=== PATIENT | female | born 2000 | race Caucasian/White ===

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

== ENCOUNTER 2022-06-11 03:36 | Inpatient (IN) | payer MEDICAID ==
[2022-06-11] MEDS ORDERED: Butorphanol 1 MG/ML SDV IVPUSH PRN (03:42)
[2022-06-11] MEDS ORDERED: Misoprostol 25 MCG (1/4 of 100 MCG) Tab VAG PRN ×2 (03:42)
[2022-06-11] MEDS ORDERED: Sodium Chloride 0.9% 10 ML Syringe FLUSH PRN (03:42)
[2022-06-11] MEDS ORDERED: Sodium Chloride 0.9% 2.5 ML Syringe FLUSH PRN (03:42)
[2022-06-11] MEDS ORDERED: Carboprost Tromethamine 250 MCG/1 ML Amp IM PRN (03:42)
[2022-06-11] MEDS ORDERED: Lidocaine 1% 50 ML MDV INJECT PRN (03:42)
[2022-06-11] MEDS ORDERED: Misoprostol 200 MCG Tab PO PRN (03:42)
[2022-06-11] MEDS ORDERED: Tranexamic Acid 1,000 MG in Sodium Chloride 0.9% 100 ML IV PRN ×2 (03:42→21:03)
[2022-06-11] MEDS ORDERED: Methylergonovine 0.2 MG/1 ML Amp IM PRN (03:42)
[2022-06-11] MEDS ORDERED: Water For Irrigation,Sterile 1,000 ML Container IRR PRN (03:42)
[2022-06-11] MEDS ORDERED: Terbutaline 1 MG/ML SDV SUBCUT PRN (03:42)
[2022-06-11] MEDS ORDERED: Sodium Chloride 0.9% 20 ML SDV IV PRN (03:42)
[2022-06-11] MEDS ORDERED: Oxytocin/0.9 % Sodium Chloride 30 UNIT/500 ML BAG IV SCH ×2 (03:45)
[2022-06-11] MEDS: Lactated Ringers 1,000 ML IV SCH ×2 (09:16→13:28)
[2022-06-11] MEDS ORDERED: Ropivacaine/PF 400 MG/200 ML PCA ONE (11:48)
[2022-06-11] MEDS ORDERED: ePHEDrine 50 MG/ML SDV IVPUSH PRN (12:28)
[2022-06-11] MEDS ORDERED: Phenylephrine HCl In 0.9% NaCl 1 MG/10 ML Vial IVPUSH PRN (12:28)
[2022-06-11] MEDS ORDERED: Ropivacaine HCl/PF 400 MG in Premix Bag 1 BAG EPIDUR SCH (12:30)
[2022-06-11] MEDS ORDERED: Phenylephrine 1% 10 MG/ML SDV ONE (12:36)
[2022-06-11] MEDS ORDERED: ePHEDrine 50 MG/ML SDV ONE (12:36)
[2022-06-11] MEDS ORDERED: Lanolin 100% Cream 7 GM Tube TOP PRN (21:03)
[2022-06-11] MEDS ORDERED: Acetaminophen 500 MG Tab PO PRN (21:03)
[2022-06-11] MEDS ORDERED: Witch Hazel Medicated Pads 40/Jar TOP PRN (21:03)
[2022-06-11] MEDS ORDERED: Bisacodyl 10 MG Supp RECTAL PRN (21:03)
[2022-06-11] MEDS ORDERED: Ibuprofen 400 MG Tab PO PRN (21:03)
[2022-06-11] MEDS ORDERED: Misoprostol 200 MCG Tab RECTAL PRN (21:03)
[2022-06-11] MEDS ORDERED: Benzocaine/Menthol 20%-0.5% Spray 78 GM Cannister TOP PRN (21:03)
[2022-06-11] MEDS: Docusate Sodium 100 MG Cap PO PRN (22:38)
[2022-06-11] MEDS: Ibuprofen 800 MG Tab PO PRN (22:38)
[2022-06-11] MEDS: Acetaminophen 500 MG Tab PO PRN (22:39)
[2022-06-12] MEDS: Acetaminophen 500 MG Tab PO PRN ×2 (05:58→11:42)
[2022-06-12] MEDS: Ibuprofen 800 MG Tab PO PRN ×3 (05:59→23:41)
[2022-06-13] MEDS: Ibuprofen 800 MG Tab PO PRN (08:00)
[2022-06-13] MEDS: Acetaminophen 500 MG Tab PO PRN (08:01)
[2022-06-13] MEDS: Docusate Sodium 100 MG Cap PO PRN (08:01)
== END 2022-06-13 12:34 | disposition home or self-care (01) | DRG 807 ==
LOC: MW.OBCHECK 03:36 → MW.OB 03:37 → MW.OBCHECK 03:42 → OBSVTOIN 20:27 → MW.OB 06-12 00:30
PROVIDERS: ADMIT Obstetrics & Gynecology; ATTEND Obstetrics & Gynecology
PROC: 10E0XZZ Delivery of Products of Conception, External Approach (ICD-10-PCS; principal; 2022-06-11)
PROC: 0KQM0ZZ Repair Perineum Muscle, Open Approach (ICD-10-PCS; 2022-06-11)
PROC: 10907ZC Drainage of Amniotic Fluid, Therapeutic from Products of Conception, Via Natural or Artificial Opening (ICD-10-PCS; 2022-06-11)
PROC: 3E0P7VZ Introduction of Hormone into Female Reproductive, Via Natural or Artificial Opening (ICD-10-PCS; 2022-06-11)
PROC: 3E0R3BZ Introduction of Anesthetic Agent into Spinal Canal, Percutaneous Approach (ICD-10-PCS; 2022-06-11)
PROC: 00HU33Z Insertion of Infusion Device into Spinal Canal, Percutaneous Approach (ICD-10-PCS; 2022-06-11)
PROC: 0UQMXZZ Repair Vulva, External Approach (ICD-10-PCS; 2022-06-11)
DX: O14.03 Mild to moderate pre-eclampsia, third trimester (principal); Z37.0 Single live birth; O70.1 Second degree perineal laceration during delivery; O48.0 Post-term pregnancy; O77.0 Labor and delivery complicated by meconium in amniotic fluid; Z20.822 Contact with and (suspected) exposure to COVID-19; Z87.891 Personal history of nicotine dependence; Z3A.40 40 weeks gestation of pregnancy
CPT/HCPCS: 01967; 36415; 51702; 59025; 59409; 82803; 85014; 85018; 85027; 86592; 86850; 86900; 86901; A9270-GY; J2370; J2590; J2795; J3490; J7120; U0002

== ENCOUNTER 2023-07-06 19:56 | Emergency (ER) | payer MEDICAID ==
[2023-07-06] MEDS: Sodium Chloride 0.9% 10 ML Syringe FLUSH PRN (21:41)
[2023-07-06] MEDS: Sodium Chloride 0.9% 2.5 ML Syringe FLUSH PRN (21:41)
[2023-07-06 21:42] LABS: BASOPHILS ABSOLUTE AUTO 0.03 K/uL (0.00-0.20); BASOPHILS PERCENT AUTO 0.3 % (0.0-1.0); EOSINOPHILS ABSOLUTE AUTO 0.78 K/uL (0.00-0.45); EOSINOPHILS PERCENT AUTO 8.9 % (0.0-6.0); HEMATOCRIT 39.6 % (37.0-47.0); HEMOGLOBIN 13.6 g/dL (12.0-16.0); IMMATURE GRAN ABSOLUTE AUTO 0.02 K/uL (0.00-0.05); IMMATURE GRAN PERCENT AUTO 0.2 % (0.0-0.4); LYMPHOCYTES ABSOLUTE AUTO 2.73 K/uL (1.00-4.80); MEAN CORPUSCULAR HEMOGLOBIN 31.1 pg (28.0-32.0); MEAN CORPUSCULAR HGB CONC 34.3 g/dL (32.0-36.0); MEAN CORPUSCULAR VOLUME 90.6 fL (83.0-99.0); MONOCYTES ABSOLUTE AUTO 0.74 K/uL (0.00-0.80); MONOCYTES PERCENT AUTO 8.4 % (0.0-8.0); NEUTROPHILS ABSOLUTE AUTO 4.51 K/uL (1.80-7.70); NEUTROPHILS PERCENT AUTO 51.2 % (41.0-71.0); PLATELET COUNT,PLT 343 K/uL (150-400); RED BLOOD CELL COUNT 4.37 M/uL (4.10-5.30); WHITE BLOOD CELL COUNT,WBC 8.81 K/uL (3.9-11.3)
[2023-07-06 21:55] LABS: APPEARANCE,URINE CLEAR; BILIRUBIN,URINE NEGATIVE (NEGATIVE); COLOR,URINE YELLOW; GLUCOSE,URINE NEGATIVE (NEGATIVE); KETONES,URINE TRACE mg/dL (NEGATIVE); LEUKOCYTE ESTERASE,URINE NEGATIVE (NEGATIVE); NITRITE,URINE NEGATIVE (NEGATIVE); OCCULT BLOOD,URINE NEGATIVE (NEGATIVE); PROTEIN,URINE NEGATIVE (NEGATIVE); UROBILINOGEN,URINE 0.2 EU/dL (<2.0)
[2023-07-06 22:15] LABS: A/G RATIO 0.8 (0.9-1.6); ALANINE AMINOTRANSFERASE,ALT 29 IU/L (14-63); ALBUMIN 3.3 g/dL (3.4-5.0); ALKALINE PHOSPHATASE 112 U/L (46-116); ASPARTATE AMNIOTRANSFERASE,AST 14 IU/L (15-37); BILIRUBIN TOTAL 0.3 mg/dL (0.2-1.0); BLOOD UREA NITROGEN,BUN 11 mg/dL (7.0-18.0); CARBON DIOXIDE,CO2 20.6 mmol/L (21.0-32.0); CHLORIDE,CL 106 mmol/L (98-107); CREATININE 0.9 mg/dL (0.6-1.0); EST CRCL DRUG DOSING (CG) 82.48 mL/min; GLUCOSE RANDOM 113 mg/dL (74-106); LIPASE 56 U/L (16-77); POTASSIUM,K 3.8 mmol/L (3.5-5.1); PROTEIN TOTAL,TP 7.5 g/dL (6.4-8.2); SODIUM,NA 141 mmol/L (136-145)
[2023-07-06 22:16] LABS: ESTIMATED GFR 94 mL/min (>60); HCG QUANTITATIVE < 1.0 mIU/mL
[2023-07-06] MEDS: Iopamidol 755 MG/ML 500 ML Multipack Bottle IVPUSH STA (23:25)
== END 2023-07-07 00:13 | disposition home or self-care (01) ==
LOC: MW.ED 19:56
DX: R10.33 Periumbilical pain (principal); J45.909 Unspecified asthma, uncomplicated; Z86.16 Personal history of COVID-19
CPT/HCPCS: 36415; 74177; 80053; 81003; 81025; 83690; 84702; 85025; 99284; J3490; Q9967